=== PATIENT | female | born 1950 | race Caucasian/White ===

== ENCOUNTER 2019-04-29 17:25 | Emergency (ER) | payer MEDICAID ==
[~2019-04-29] VITALS: Ht 157.5 cm; Wt 50.0 kg
[~2019-04-29 17:25] MED LIST: ACET-141 PO; AMLO-147 PO; ASPI-817 PO; ATOR40TA68 PO; BENA40TA56 PO; INSU100I33 SC; POLY17PO6 PO; RIVA15TA PO
[2019-04-29 17:30] VITALS: Ht 157.5 cm; Wt 50.0 kg
[2019-04-29] MEDS ORDERED: SOD CHLORIDE 0.9% 1,000 ML IV STA (17:39)
[2019-04-29] MEDS ORDERED: ONDANSETRON 4 MG INJ IV STA (17:39)
[2019-04-29] MEDS ORDERED: FENTAnyl 50 MCG/ML VIAL IV ONE (18:00)
--- NOTE | 2019-04-29 18:06 | ERD ---
ER Documentation Chief Complaint Chief Complaint lower abdominal pain x 2 days HPI 69-year-old female with history of hypertension, DM, and a recent diagnosis of pyelonephritis 1 week ago, on antibiotics brought in by ambulance from her board and care facility for abdominal pain that started last night. The pain is all over her abdomen. She has not had a bowel movement in 3 days and is not passing gas. She also complains of burning with urination. She has associated body aches but is unsure as she is having any fevers or chills. She did have multiple episodes of nonbloody vomiting today. ROS All systems reviewed and are negative except as per history of present illness. Medications Home Meds Reported Medications Insulin Glargine,Hum.rec.anlog (Basaglar Kwikpen U-100) 100 Unit/1 Ml Insuln.pen, 8 UNIT SC QPM, EA 09/25/18 Polyethylene Glycol* (Miralax*) 17 Gm Powd.pack, 17 GM PO DAILY, #30 PACKET 09/25/18 Acetaminophen* (Acetaminophen*) 500 MG Extra Strength Tablet, 500 MG PO Q6H PRN for PAIN AND OR ELEVATED TEMP, TAB 09/25/18 Atorvastatin* (Atorvastatin*) 40 Mg Tablet, 40 MG PO QHS, #30 TAB 09/25/18 Rivaroxaban* (Xarelto*) 15 Mg Tablet, 15 MG PO QAM, TAB 09/25/18 Benazepril Hcl* (Benazepril Hcl*) 40 Mg Tablet, 40 MG PO DAILY, #30 TAB 09/25/18 Amlodipine Besylate* (Amlodipine Besylate*) 10 Mg Tablet, 10 MG PO DAILY, #30 TAB 09/25/18 Aspirin* (Aspirin* EC) 81 Mg Tablet.dr, 81 MG PO DAILY, TAB 09/25/18 Allergies Allergies: Coded Allergies: morphine (Verified Allergy, Intermediate, Rash, 09/25/18) PMhx/Soc History of Surgery: Yes (Appendectomy, cholecystectomy, left BKA) Anesthesia Reaction: No Hx Neurological Disorder: No Hx Respiratory Disorders: No Hx Cardiac Disorders: Yes (Hypertension) Hx Psychiatric Problems: No Hx Miscellaneous Medical Probl: Yes (Diabetes) Hx Alcohol Use: No Hx Substance Use: No Hx Tobacco Use: No Smoking Status: Never smoker FmHx Family History: diabetes Physical Exam Vitals Vital Signs Date Temp Pulse Resp B/P (MAP) Pulse Ox O2 O2 Flow FiO2 Time Delivery Rate 04/29/19 98.1 79 18 134/72 100 17:30 (92) Physical Exam Const: No acute distress Head: Atraumatic Eyes: Normal Conjunctiva ENT: Normal External Ears, Nose and Mouth. Neck: Full range of motion. No meningismus. Resp: Clear to auscultation bilaterally Cardio: Regular rate and rhythm, no murmurs Abd: Soft, non distended. Diffuse mild tenderness with no rebound or guarding. No masses. Hyperactive bowel sounds Skin: No petechiae or rashes Back: No midline or flank tenderness Ext: No cyanosis, or edema. 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 Neur: Awake and alert Psych: Normal Mood and Affect Results 24 hrs Laboratory Tests Test 04/29/19 17:55 White Blood Count Pending Red Blood Count Pending Hemoglobin Pending Hematocrit Pending Mean Corpuscular Volume Pending Mean Corpuscular Hemoglobin Pending Mean Corpuscular Hemoglobin Concent Pending Red Cell Distribution Width Pending Platelet Count Pending Mean Platelet Volume Pending Current Medications Medications Dose Sig/Sindhu Start Time Status Last (Trade) Ordered Route PRN Stop Time Admin Dose Reason Admin Sodium 1,000 ml @ Q1H STAT 04/29/19 Chloride 1,000 mls/hr IV 17:39 04/29/19 18:38 Ondansetron 4 mg ONCE STAT 04/29/19 DC HCl (Zofran IV 17:39 Inj) 04/29/19 17:41 Fentanyl 25 mcg ONCE ONCE 04/29/19 DC (Sublimaze) IV 18:00 04/29/19 18:01 Departure Diagnosis: Primary Impression: Abdominal pain YAN OSEGUERA MD Apr 29, 2019 18:06
[2019-04-29] MEDS ORDERED: DORZ10DR22 RIGHT EYE (18:26)
[2019-04-29] MEDS ORDERED: LEVO500T48 PO (18:26)
[2019-04-29] MEDS ORDERED: BRIM15DR2 LEFT EYE (18:26)
[2019-04-29] MEDS ORDERED: LANT3I SC (18:26)
[2019-04-29] MEDS ORDERED: IOHEXOL 300MG/ML 150 ML BTL ONE (18:35)
[2019-04-29] MEDS ORDERED: SOD CHLORIDE 0.9% 100 ML ONE (18:35)
[2019-04-29] MEDS ORDERED: BISA-57 PO (19:52)
[2019-04-29] MEDS ORDERED: BISACODYL (EC) 5 MG TAB PO ONE (20:00)
[2019-04-29 21:51] VITALS: BP 120/70; PULSE 80; RESP 16
== END 2019-04-29 21:51 | disposition home or self-care (01) ==
LOC: E/R 17:25
DX: R10.84 Generalized abdominal pain (principal); I10 Essential (primary) hypertension; E11.9 Type 2 diabetes mellitus without complications; Z79.4 Long term (current) use of insulin; Z79.82 Long term (current) use of aspirin
CPT/HCPCS: 36415; 71045; 74177; 80053; 81001; 83690; 84484; 85025; 87086; 93005; 96374; 96375; J2405; J3010; J7030; Q9967; Z7502; Z7610; A4310